=== PATIENT | female | born 1950 | race Hispanic/Latino ===

== ENCOUNTER 2018-02-13 01:30 | Inpatient (IN) | payer MEDICARE, OTHER ==
[~2018-02-13] VITALS: Ht 162.6 cm; Wt 72.6 kg
[~2018-02-13 01:30] MED LIST: AEC81 PO; HYDR1POW19 MC; INSLAN SQ; LEVO25TA9 PO; METF-446 PO
[2018-02-13] MEDS ORDERED: ONDANSETRON HCL 4 MG/2 ML VIAL ONE (02:04)
[2018-02-13] MEDS ORDERED: SODIUM CHLORIDE 0.9% 1000ML 1,000 ML IV ONE (02:04)
[2018-02-13 02:14] LABS: APPEARANCE,URINE Clear (CLEAR); BASOPHILS % (AUTO) 2.7 % (0.0-5.0); BILIRUBIN,URINE Negative (NEGATIVE); COLOR,URINE Yellow (YELLOW); EOSINOPHILS % (AUTO) 1.8 % (0.0-8.0); GLUCOSE, URINE (UA) 250 mg/dL (NEGATIVE); HEMATOCRIT 35.8 % (36-48); KETONES,URINE Negative (NEGATIVE); LEUKOCYTE ESTERASE ,URINE Trace (NEGATIVE); LYMPHOCYTES % (AUTO) 21.3 % (21.0-51.0); MEAN CORPUSCULAR HEMOGLOBIN 28.6 pg (27.0-33.0); MEAN CORPUSCULAR HGB CONC 34.6 g/dL (32.0-36.0); MEAN CORPUSCULAR VOLUME 82.6 fL (79-99); MONOCYTES % (AUTO) 3.9 % (3.0-13.0); NEUTROPHILS % (AUTO) 70.3 % (40.0-77.0); NITRATE,URINE Negative (NEGATIVE); OCCULT BLOOD,URINE Negative (NEGATIVE); PLATELET COUNT (AUTO) 371 K/uL (130-400); PROTEIN,URINE Negative (NEGATIVE); RED BLOOD CELL COUNT(AUTO) 4.33 MIL/uL (4.00-5.50); RED CELL DISTRIBUTION WIDTH 13.3 % (11.0-15.5); UROBILINOGEN,URINE 0.2 mg/dL (0.2-1.0); WHITE BLOOD COUNT (AUTO) 9.1 K/uL (4.8-10.8)
[2018-02-13 02:20] LABS: BACTERIA,URINE None Seen /HPF (None Seen); RBC,URINE None Seen /HPF (0-1); WBC,URINE None Seen /HPF (0-1)
[2018-02-13 02:22] LABS: ALBUMIN 3.8 g/dL (3.5-5.0); BILIRUBIN,TOTAL 0.3 mg/dL (0.2-1.0); POTASSIUM 3.8 mmol/L (3.5-5.1); TOTAL PROTEIN, SERUM 7.9 g/dL (6.0-8.3)
[2018-02-13] MEDS ORDERED: MAG HYDROX/AL HYDROX/SIMETH ES 30 ML SUSP UDCUP ONE (03:52)
[2018-02-13] MEDS ORDERED: LIDOCAINE HCL 2% VISCOUS 15 ML UDCUP ONE (03:52)
[2018-02-13] MEDS ORDERED: SODIUM CHLORIDE 3% 500 ML IV ONE (05:45)
[2018-02-13 07:00] VITALS: BP 132/93
[2018-02-13 08:48] LABS: CREATINE KINASE, TOTAL 95 U/L (21-232); MYOGLOBIN 69 ng/mL (10-92); TROPONIN I < 0.04 ng/mL (0.00-0.06)
[2018-02-13] MEDS: FAMOTIDINE/PF 20 MG/2 ML VIAL IV SCH (10:29)
[2018-02-13 11:00] VITALS: BP 156/65
[2018-02-13 15:07] LABS: CREATINE KINASE, TOTAL 80 U/L (21-232); MYOGLOBIN 58 ng/mL (10-92); TROPONIN I < 0.04 ng/mL (0.00-0.06)
[2018-02-13 16:00] VITALS: BP 154/70
[2018-02-13 17:37] VITALS: BP 168/66
[2018-02-13 20:00] VITALS: BP 161/77
[2018-02-14] VITALS (7 sets, daily range): BP systolic 135–163; BP diastolic 55–75
[2018-02-14 05:03] LABS: MEAN CORPUSCULAR HEMOGLOBIN 29.2 pg (27.0-33.0); MEAN CORPUSCULAR HGB CONC 35.2 g/dL (32.0-36.0); MEAN CORPUSCULAR VOLUME 82.8 fL (79-99); PLATELET COUNT (AUTO) 376 K/uL (130-400); RED BLOOD CELL COUNT(AUTO) 3.86 MIL/uL (4.00-5.50); RED CELL DISTRIBUTION WIDTH 13.8 % (11.0-15.5); WHITE BLOOD COUNT (AUTO) 4.3 K/uL (4.8-10.8)
[2018-02-14 05:10] LABS: CREATININE 1.2 mg/dL (0.5-1.5); MAGNESIUM 1.6 mg/dL (1.80-2.40); POTASSIUM 3.9 mmol/L (3.5-5.1)
[2018-02-14] MEDS ORDERED: MAGNESIUM SULFATE 4 GM in SODIUM CHLORIDE 0.9% 50 ML IV ONE (06:45)
[2018-02-14] MEDS ORDERED: MAGNESIUM 4GM PREMIX 100ML 100 ML IV SCH (07:00)
[2018-02-14] MEDS: FAMOTIDINE/PF 20 MG/2 ML VIAL IV SCH (11:03)
[2018-02-14] MEDS ORDERED: REGADENOSON 0.4 MG/5 ML PF SYG IVP SCH (12:00)
[2018-02-15] MEDS ORDERED: GUAIFENESIN-CODEINE 5 ML SYRUP ONE (01:15)
[2018-02-15] MEDS ORDERED: HYDROCODONE/CHLORPHEN 5 ML BOTTLE PO PRN (01:15)
[2018-02-15 03:00] VITALS: BP 159/62
[2018-02-15 04:41] LABS: BASOPHILS % (AUTO) 1.4 % (0.0-5.0); EOSINOPHILS % (AUTO) 2.5 % (0.0-8.0); HEMATOCRIT 30.9 % (36-48); LYMPHOCYTES % (AUTO) 25.7 % (21.0-51.0); MEAN CORPUSCULAR HEMOGLOBIN 29.2 pg (27.0-33.0); MEAN CORPUSCULAR HGB CONC 35.1 g/dL (32.0-36.0); MEAN CORPUSCULAR VOLUME 83.2 fL (79-99); NEUTROPHILS % (AUTO) 64.4 % (40.0-77.0); NUCLEATED RED BLOOD CELLS 0.2 % (0.0-0.19); PLATELET COUNT (AUTO) 305 K/uL (130-400); RED BLOOD CELL COUNT(AUTO) 3.71 MIL/uL (4.00-5.50); WHITE BLOOD COUNT (AUTO) 6.3 K/uL (4.8-10.8)
[2018-02-15 04:51] LABS: ALBUMIN 3.1 g/dL (3.5-5.0); BILIRUBIN,TOTAL 0.4 mg/dL (0.2-1.0); MAGNESIUM 2.5 mg/dL (1.80-2.40); TOTAL PROTEIN, SERUM 6.6 g/dL (6.0-8.3)
[2018-02-15 08:00] VITALS: BP 147/66
[2018-02-15] MEDS: FAMOTIDINE/PF 20 MG/2 ML VIAL IV SCH (08:24)
[2018-02-15] MEDS ORDERED: PANTOPRAZOLE SODIUM 40 MG TABLET.DR PO SCH (09:00)
[2018-02-15 11:51] VITALS: BP 154/68
== END 2018-02-15 13:45 | disposition home or self-care (01) | DRG 641 ==
LOC: EDH 01:30 → EDHIP 04:15 → 2AH 05:25 → 3CH 16:26
PROVIDERS: ADMIT Family Medicine; ATTEND Family Medicine
DX: E87.1 Hypo-osmolality and hyponatremia (principal); E03.9 Hypothyroidism, unspecified; E11.9 Type 2 diabetes mellitus without complications; E83.42 Hypomagnesemia; I10 Essential (primary) hypertension; K29.70 Gastritis, unspecified, without bleeding; K80.20 Calculus of gallbladder without cholecystitis without obstruction; E86.0 Dehydration; R13.10 Dysphagia, unspecified; Z98.41 Cataract extraction status, right eye; Z88.8 Allergy status to other drugs, medicaments and biological substances; Z90.710 Acquired absence of both cervix and uterus; Z87.440 Personal history of urinary (tract) infections; Z82.49 Family history of ischemic heart disease and other diseases of the circulatory system; Z82.3 Family history of stroke
CPT/HCPCS: 36415; 71045; 74176; 78452; 80048; 80053; 81001; 82150; 82550; 82948; 83690; 83735; 83874; 83880; 84484; 85025; 85027; 87040; 87088; 93005; 93017; 93306; 96374; A9500; J2405; J2785; J3475; J3490; J7030

== ENCOUNTER → 2018-03-06 | Outpatient (CLI) | payer OTHER ==
[~2018-03-06] MED LIST changes: -HYDR1POW19 MC
== END | disposition home or self-care (01) ==
LOC: RAH 13:45
PROVIDERS: ATTEND Internal Medicine Cardiovascular Disease
DX: Z13.6 Encounter for screening for cardiovascular disorders (principal)
CPT/HCPCS: 75571

== ENCOUNTER 2018-03-07 21:06 | Emergency (ER) | payer OTHER ==
[2018-03-07 21:50] LABS: BASOPHILS % (AUTO) 0.8 % (0.0-5.0); EOSINOPHILS % (AUTO) 3.8 % (0.0-8.0); HEMATOCRIT 32.9 % (36-48); LYMPHOCYTES % (AUTO) 25.5 % (21.0-51.0); MEAN CORPUSCULAR HEMOGLOBIN 28.9 pg (27.0-33.0); MONOCYTES % (AUTO) 6.3 % (3.0-13.0); NEUTROPHILS % (AUTO) 63.6 % (40.0-77.0); PLATELET COUNT (AUTO) 381 K/uL (130-400); RED BLOOD CELL COUNT(AUTO) 3.87 MIL/uL (4.00-5.50); RED CELL DISTRIBUTION WIDTH 13.7 % (11.0-15.5); WHITE BLOOD COUNT (AUTO) 6.4 K/uL (4.8-10.8)
[2018-03-07 22:03] LABS: POTASSIUM 3.9 mmol/L (3.5-5.1)
[2018-03-07 22:07] LABS: ALBUMIN 3.4 g/dL (3.5-5.0); BILIRUBIN,TOTAL 0.5 mg/dL (0.2-1.0)
[2018-03-07] MEDS ORDERED: AMLODIPINE BESYLATE 5 MG TAB PO ONE (22:43)
== END 2018-03-07 23:22 | disposition home or self-care (01) ==
LOC: EDH 21:06
DX: I10 Essential (primary) hypertension (principal); E11.9 Type 2 diabetes mellitus without complications; E07.9 Disorder of thyroid, unspecified; Z79.4 Long term (current) use of insulin; Z88.8 Allergy status to other drugs, medicaments and biological substances; Z87.891 Personal history of nicotine dependence
CPT/HCPCS: 36415; 80053; 85025; 93005

== ENCOUNTER → 2018-03-14 | Outpatient (CLI) | payer OTHER | END | disposition home or self-care (01) | LOC: RAH 10:09 | PROVIDERS: ATTEND Family Medicine | DX: R60.0 Localized edema (principal); M79.89 Other specified soft tissue disorders; E11.9 Type 2 diabetes mellitus without complications | CPT/HCPCS: 93970 ==

== ENCOUNTER 2021-03-31 22:19 | Inpatient (IN) | payer MEDICARE, OTHER ==
[~2021-03-31] VITALS: Ht 162.6 cm; Wt 77.9 kg
[2021-03-31] MEDS ORDERED: ONDANSETRON 4MG INJ IVP ONE (23:00)
[2021-03-31 23:07] LABS: BASOPHILS % (AUTO) 0.2 % (0.0-5.0); EOSINOPHILS % (AUTO) 0.1 % (0.0-8.0); HEMATOCRIT 29.5 % (36-48); LYMPHOCYTES % (AUTO) 3.3 % (21.0-51.0); MEAN CORPUSCULAR HEMOGLOBIN 28.6 pg (27.0-33.0); MEAN CORPUSCULAR HGB CONC 35.3 g/dL (32.0-36.0); NEUTROPHILS % (AUTO) 90.6 % (40.0-77.0); PLATELET COUNT (AUTO) 266 K/uL (130-400); RED BLOOD CELL COUNT(AUTO) 3.64 MIL/uL (4.00-5.50); RED CELL DISTRIBUTION WIDTH 13.4 % (11.0-15.5); WHITE BLOOD COUNT (AUTO) 14.1 K/uL (4.8-10.8)
[2021-03-31 23:16] LABS: ALANINE AMINOTRANSFERASE 15 U/L (12-78); ALBUMIN 2.8 g/dL (3.5-5.0); ASPARTATE AMINOTRANSFERASE 15 U/L (10-37); BILIRUBIN,TOTAL 0.7 mg/dL (0.2-1.0); CARBON DIOXIDE 22 mmol/L (21-32); GLOMERULAR FILTR. RATE CALC 16 mL/min (>60); GLUCOSE,RANDOM 207 mg/dL (70-105); POTASSIUM 4.4 mmol/L (3.5-5.1); SODIUM SERUM 120 mmol/L (136-145); TOTAL PROTEIN, SERUM 6.8 g/dL (6.0-8.3); UREA NITROGEN, BLOOD 36 mg/dL (7-18)
[2021-03-31 23:21] LABS: LIPASE < 50 U/L (114-286)
[2021-03-31 23:22] LABS: CHLORIDE 87 mmol/L (101-111)
[2021-03-31 23:33] LABS: APPEARANCE,URINE Turbid (CLEAR); BILIRUBIN,URINE Negative (NEGATIVE); COLOR,URINE Dark Yellow (YELLOW); GLUCOSE, URINE (UA) Negative (NEGATIVE); KETONES,URINE Trace mg/dL (NEGATIVE); LEUKOCYTE ESTERASE ,URINE Large (NEGATIVE); NITRATE,URINE Negative (NEGATIVE); OCCULT BLOOD,URINE Large (NEGATIVE); PROTEIN,URINE POS 2+ mg/dL (NEGATIVE)
[2021-03-31 23:43] LABS: BACTERIA,URINE Many /HPF (None Seen); SQUAMOUS EPITHELIAL CELL,UR Rare /HPF (0-2)
[2021-04-01] MEDS ORDERED: ZOSYN 3.375GM +NS 50ML IV ONE (00:30)
[2021-04-01] MEDS ORDERED: 0.9%NACL 1000ML 1,000 ML IV ONE ×3 (00:30→04:30)
[2021-04-01] MEDS ORDERED: VANCOMYCIN PROTOCOL PER PHARMACY IV SCH (04:30)
[2021-04-01] MEDS ORDERED: VANCOMYCIN 1G/250ML KIT 250 ML IV ONE (04:30)
[2021-04-01] MEDS: ZOSYN 3.375GM+NS 50ML 50 ML IV SCH ×2 (04:30→16:02)
[2021-04-01] MEDS: 0.9%NACL 1000ML 1,000 ML IV SCH ×3 (05:04→20:24)
[2021-04-01 07:20] LABS: HEMATOCRIT 28.4 % (36-48); MEAN CORPUSCULAR HEMOGLOBIN 27.8 pg (27.0-33.0); MEAN CORPUSCULAR HGB CONC 34.2 g/dL (32.0-36.0); MEAN CORPUSCULAR VOLUME 81.4 fL (79-99); PLATELET COUNT (AUTO) 246 K/uL (130-400); RED BLOOD CELL COUNT(AUTO) 3.49 MIL/uL (4.00-5.50); RED CELL DISTRIBUTION WIDTH 13.5 % (11.0-15.5); WHITE BLOOD COUNT (AUTO) 11.9 K/uL (4.8-10.8)
[2021-04-01 07:27] LABS: CREATININE 2.6 mg/dL (0.5-1.5); POTASSIUM 3.9 mmol/L (3.5-5.1)
[2021-04-01] MEDS ORDERED: CHOL2400 MC (07:29)
[2021-04-01] MEDS ORDERED: HYDR12.54 PO (07:29)
[2021-04-01] MEDS ORDERED: LOSA100T58 PO (07:29)
[2021-04-01] MEDS ORDERED: METO-408 PO (07:29)
[2021-04-01] MEDS ORDERED: LATA7.5D OP (07:29)
[2021-04-01] MEDS ORDERED: ACETAMINOPHEN 500 MG TABLET ONE (07:44)
[2021-04-01] MEDS: LEVOTHYROXINE 25 MCG TABLET PO SCH (07:55)
[2021-04-01] MEDS ORDERED: METFORMIN HCL 500 MG TABLET PO SCH (08:00)
[2021-04-01 08:59] LABS: BAND NEUTROPHILS % (MANUAL) 10 % (0-2); LYMPHOCYTES % (MANUAL) 2 % (22-44); MAN.DIFF COMMENT-IMPRESSION MANUAL DIFFERENTIAL; MONOCYTES % (MANUAL) 4 % (2-9); PLATELET MORPHOLOGY COMMENT ADEQUATE; SEGMENTED NEUTROPHILS % 84 % (40-70)
[2021-04-01] MEDS ORDERED: HYDROCHLOROTHIAZIDE 25 MG TABLET PO SCH (09:00)
[2021-04-01] MEDS ORDERED: LOSARTAN 100 MG TABLET PO SCH (09:00)
[2021-04-01] MEDS: METOPROLOL SUCCINATE 50 MG TAB.SR.24H PO SCH (09:00)
[2021-04-01] MEDS: ***HM***(Cholecalciferol (Vitamin D3) (Vitamin D3) 2,000 UNIT) PO SCH (09:00)
[2021-04-01] MEDS: ASPIRIN 81 MG EC TAB PO SCH (09:07)
[2021-04-01] MEDS: ACETAMINOPHEN 500 MG TABLET PO SCH ×2 (10:30→17:30)
[2021-04-01] MEDS: INSULIN GLARGINE 100 UNITS/ML 10 ML VIAL SQ SCH (17:30)
[2021-04-01] MEDS: LATANOPROST 2.5 ML DROPS OP SCH (20:17)
[2021-04-02 00:20] VITALS: BP 128/43
[2021-04-02] MEDS ORDERED: MAGNESIUM 4GM PREMIX 100ML 100 ML IV ONE (02:50)
[2021-04-02] MEDS ORDERED: MAGNESIUM 4GM PREMIX 100ML 100 ML IV PRN (03:00)
[2021-04-02] MEDS: ACETAMINOPHEN 500 MG TABLET PO SCH ×4 (03:02→20:33)
[2021-04-02 04:00] VITALS: BP 126/48
[2021-04-02] MEDS: LEVOTHYROXINE 25 MCG TABLET PO SCH (04:43)
[2021-04-02 05:31] LABS: BASOPHILS % (AUTO) 0.5 % (0.0-5.0); EOSINOPHILS % (AUTO) 0.4 % (0.0-8.0); HEMATOCRIT 27.3 % (36-48); LYMPHOCYTES % (AUTO) 5.2 % (21.0-51.0); MEAN CORPUSCULAR HEMOGLOBIN 27.8 pg (27.0-33.0); MEAN CORPUSCULAR HGB CONC 33.7 g/dL (32.0-36.0); MEAN CORPUSCULAR VOLUME 82.5 fL (79-99); MONOCYTES % (AUTO) 6.1 % (3.0-13.0); NEUTROPHILS % (AUTO) 86.9 % (40.0-77.0); PLATELET COUNT (AUTO) 180 K/uL (130-400); RED BLOOD CELL COUNT(AUTO) 3.31 MIL/uL (4.00-5.50); RED CELL DISTRIBUTION WIDTH 13.8 % (11.0-15.5); WHITE BLOOD COUNT (AUTO) 10.6 K/uL (4.8-10.8)
[2021-04-02 05:41] LABS: CREATININE 2.5 mg/dL (0.5-1.5); POTASSIUM 3.8 mmol/L (3.5-5.1)
[2021-04-02 06:01] LABS: MAGNESIUM 22.2 mg/dL (1.80-2.40)
[2021-04-02 08:00] VITALS: BP 121/56
[2021-04-02] MEDS: ***HM***(Cholecalciferol (Vitamin D3) (Vitamin D3) 2,000 UNIT) PO SCH (09:00)
[2021-04-02] MEDS: ASPIRIN 81 MG EC TAB PO SCH (10:37)
[2021-04-02] MEDS: PANTOPRAZOLE 40 MG TAB DR PO SCH (10:37)
[2021-04-02] MEDS: METOPROLOL SUCCINATE 50 MG TAB.SR.24H PO SCH (10:38)
[2021-04-02 11:45] VITALS: BP 137/53
[2021-04-02] MEDS: 0.9%NACL 1000ML 1,000 ML IV SCH ×2 (13:58→20:30)
[2021-04-02 16:00] VITALS: BP 118/61
[2021-04-02] MEDS: ZOSYN 3.375GM+NS 50ML 50 ML IV SCH (16:43)
[2021-04-02 20:00] VITALS: BP 127/41
[2021-04-02] MEDS: INSULIN GLARGINE 100 UNITS/ML 10 ML VIAL SQ SCH (20:20)
[2021-04-02] MEDS: LATANOPROST 2.5 ML DROPS OP SCH (21:17)
[2021-04-03] VITALS: BP 127/43
[2021-04-03] MEDS: ACETAMINOPHEN 500 MG TABLET PO SCH (02:18)
[2021-04-03] MEDS: LOPERAMIDE HCL 2 MG CAP PO PRN ×2 (03:32→03:38)
[2021-04-03] MEDS: ZOSYN 3.375GM+NS 50ML 50 ML IV SCH (03:38)
[2021-04-03 04:00] VITALS: BP 123/42
[2021-04-03] MEDS: LEVOTHYROXINE 25 MCG TABLET PO SCH (05:09)
[2021-04-03] MEDS: 0.9%NACL 1000ML 1,000 ML IV SCH (05:10)
[2021-04-03 06:09] LABS: BASOPHILS % (AUTO) 0.4 % (0.0-5.0); EOSINOPHILS % (AUTO) 2.5 % (0.0-8.0); HEMATOCRIT 27.1 % (36-48); LYMPHOCYTES % (AUTO) 6.8 % (21.0-51.0); MEAN CORPUSCULAR HEMOGLOBIN 27.8 pg (27.0-33.0); MEAN CORPUSCULAR HGB CONC 34.3 g/dL (32.0-36.0); MEAN CORPUSCULAR VOLUME 81.1 fL (79-99); MONOCYTES % (AUTO) 6.2 % (3.0-13.0); NEUTROPHILS % (AUTO) 83.1 % (40.0-77.0); PLATELET COUNT (AUTO) 267 K/uL (130-400); RED BLOOD CELL COUNT(AUTO) 3.34 MIL/uL (4.00-5.50); RED CELL DISTRIBUTION WIDTH 14.3 % (11.0-15.5); WHITE BLOOD COUNT (AUTO) 10.3 K/uL (4.8-10.8)
[2021-04-03] MEDS: PANTOPRAZOLE 40 MG TAB DR PO SCH (06:15)
[2021-04-03] MEDS ORDERED: PANT40TA54 PO (06:32)
[2021-04-03 06:37] LABS: CREATININE 2.5 mg/dL (0.5-1.5); MAGNESIUM 2.4 mg/dL (1.80-2.40); POTASSIUM 4.1 mmol/L (3.5-5.1); VANCOMYCIN LEVEL 6.5 mcg/mL (18.0-26.0)
[2021-04-03] MEDS ORDERED: NITR100C4 PO (06:38)
[2021-04-03] MEDS ORDERED: VANCOMYCIN KIT 1 GM/250 ML IV.KIT IV SCH (08:00)
[2021-04-07] MEDS ORDERED: 0.9% NACL 250ML 250 ML IV SCH (07:30)
== END 2021-04-03 09:53 | disposition home or self-care (01) | DRG 683 ==
LOC: EDH 22:19 → EDHIP 04-01 03:32 → 3AH 04-01 22:52
PROVIDERS: ADMIT Family Medicine; ATTEND Family Medicine
DX: N17.9 Acute kidney failure, unspecified (principal); E87.1 Hypo-osmolality and hyponatremia; N39.0 Urinary tract infection, site not specified; R78.81 Bacteremia; I10 Essential (primary) hypertension; E03.9 Hypothyroidism, unspecified; E11.9 Type 2 diabetes mellitus without complications; E86.0 Dehydration; D72.829 Elevated white blood cell count, unspecified; B96.89 Other specified bacterial agents as the cause of diseases classified elsewhere; E87.5 Hyperkalemia; E78.00 Pure hypercholesterolemia, unspecified; Z79.4 Long term (current) use of insulin; Z90.710 Acquired absence of both cervix and uterus; Z88.8 Allergy status to other drugs, medicaments and biological substances
CPT/HCPCS: 36415; 71250; 74176; 80048; 80053; 80202; 81001; 82010; 82948; 83605; 83690; 83735; 85025; 87040; 87046; 87077; 87088; 87186; 87324; G0378; J2405; J2543; J3370; J3475; J7030

== ENCOUNTER 2021-04-07 22:49 | Inpatient (IN) | payer MEDICARE ==
[~2021-04-07] VITALS: Ht 162.6 cm; Wt 73.6 kg
[~2021-04-07 22:49] MED LIST changes: +CHOL2400 MC; +LATA7.5D OP; -METF-446 PO; +METO-408 PO; +PANT40TA54 PO
[2021-04-07] MEDS ORDERED: 0.9%NACL 1000ML 1,000 ML IV ONE (23:30)
[2021-04-07] MEDS ORDERED: ONDANSETRON 4MG INJ IVP ONE (23:30)
[2021-04-07] MEDS ORDERED: ACETAMINOPHEN 325 MG TAB PO ONE (23:30)
[2021-04-07 23:47] LABS: BASOPHILS % (AUTO) 0.3 % (0.0-5.0); EOSINOPHILS % (AUTO) 0.3 % (0.0-8.0); HEMATOCRIT 29.2 % (36-48); LYMPHOCYTES % (AUTO) 4.9 % (21.0-51.0); MEAN CORPUSCULAR HGB CONC 33.6 g/dL (32.0-36.0); MEAN CORPUSCULAR VOLUME 83.4 fL (79-99); MONOCYTES % (AUTO) 4.1 % (3.0-13.0); NEUTROPHILS % (AUTO) 86.4 % (40.0-77.0); PLATELET COUNT (AUTO) 402 K/uL (130-400); RED CELL DISTRIBUTION WIDTH 14.2 % (11.0-15.5); WHITE BLOOD COUNT (AUTO) 18.6 K/uL (4.8-10.8)
[2021-04-07 23:47] LABS: BILIRUBIN,URINE Negative (NEGATIVE); COLOR,URINE Yellow (YELLOW); GLUCOSE, URINE (UA) 500 mg/dL (NEGATIVE); KETONES,URINE Trace mg/dL (NEGATIVE); LEUKOCYTE ESTERASE ,URINE Moderate (NEGATIVE); NITRATE,URINE Negative (NEGATIVE); OCCULT BLOOD,URINE Moderate (NEGATIVE); PH,URINE 5.5 (5.0-8.0); PROTEIN,URINE POS 2+ mg/dL (NEGATIVE)
[2021-04-07 23:53] LABS: APPEARANCE,URINE CLOUDY (CLEAR)
[2021-04-07 23:55] LABS: BACTERIA,URINE Rare /HPF (None Seen); SQUAMOUS EPITHELIAL CELL,UR Rare /HPF (0-2)
[2021-04-07 23:59] LABS: CREATININE 1.8 mg/dL (0.5-1.5); POTASSIUM 4.8 mmol/L (3.5-5.1)
[2021-04-08 00:04] LABS: ALBUMIN 2.3 g/dL (3.5-5.0); BILIRUBIN,TOTAL 0.7 mg/dL (0.2-1.0); CRP QUANTITATIVE 158.1 mg/L (0.00-9.0); TOTAL PROTEIN, SERUM 6.7 g/dL (6.0-8.3)
[2021-04-08] MEDS ORDERED: ZOSYN 3.375GM +NS 50ML IV ONE (03:00)
[2021-04-08] MEDS ORDERED: 0.9%NACL 1000ML 1,000 ML IV ONE (03:00)
[2021-04-08] MEDS ORDERED: MORPHINE 2 MG SYG IVP ONE (03:00)
[2021-04-08 05:00] VITALS: BP 129/72
[2021-04-08] MEDS ORDERED: NITR100C PO (06:05)
[2021-04-08] MEDS ORDERED: DULA1.5P SQ (06:05)
[2021-04-08] MEDS ORDERED: [UNRECOGNIZED DRUG - CODE] PO (06:05)
[2021-04-08] MEDS ORDERED: HYDR12.54 PO (06:05)
[2021-04-08] MEDS ORDERED: AMOX1TAB16 PO (06:05)
[2021-04-08] MEDS ORDERED: ONDA4TAB10 PO (06:05)
[2021-04-08] MEDS ORDERED: ATOR10 PO (06:05)
[2021-04-08] MEDS ORDERED: LOSA100T58 PO (06:05)
[2021-04-08] MEDS ORDERED: CHOL200074 PO (06:05)
[2021-04-08] MEDS ORDERED: METF-446 PO (06:05)
[2021-04-08 08:05] VITALS: BP 170/56
[2021-04-08] MEDS ORDERED: VANCOMYCIN PROTOCOL PER PHARMACY IV SCH (11:30)
[2021-04-08] MEDS ORDERED: MORPHINE 2 MG SYG IVP PRN (11:30)
[2021-04-08] MEDS ORDERED: COMPOUND IV REFRIGERATED 1 EACH IVSOLN MISC PRN (11:30)
[2021-04-08] MEDS ORDERED: ONDANSETRON 4MG INJ IVP PRN (11:30)
[2021-04-08] MEDS: ZOSYN 3.375GM +NS 50ML IV SCH ×2 (11:38→19:55)
[2021-04-08] MEDS: 0.9%NACL 1000ML 1,000 ML IV SCH ×2 (11:39→18:10)
[2021-04-08 12:06] VITALS: BP 153/63
[2021-04-08] MEDS: VANCOMYCIN 1.25GM/NS 250ML IVPB SCH ×2 (14:00)
[2021-04-08 16:00] VITALS: BP 168/55
[2021-04-08] MEDS: ATORVASTATIN 20 MG TABLET PO SCH (19:55)
[2021-04-08 20:00] VITALS: BP 123/51
[2021-04-08] MEDS ORDERED: GLUCAGON 1MG KIT 1 MG ML IM PRN (21:30)
[2021-04-08] MEDS ORDERED: DEXTROSE 50%-WATER 50 ML DISP.SYRIN IV PRN (21:30)
[2021-04-08] MEDS: INSULIN HUMULIN R 100 UNIT/ML 3ML SQ SCH (21:44)
[2021-04-09] VITALS (7 sets, daily range): BP systolic 134–178; BP diastolic 52–98
[2021-04-09] MEDS: 0.9%NACL 1000ML 1,000 ML IV SCH ×4 (00:50→17:15)
[2021-04-09] MEDS: ZOSYN 3.375GM +NS 50ML IV SCH ×3 (03:13→17:15)
[2021-04-09 04:24] LABS: HEMATOCRIT 25.9 % (36-48); MEAN CORPUSCULAR HEMOGLOBIN 27.6 pg (27.0-33.0); MEAN CORPUSCULAR HGB CONC 32.8 g/dL (32.0-36.0); MEAN CORPUSCULAR VOLUME 84.1 fL (79-99); RED BLOOD CELL COUNT(AUTO) 3.08 MIL/uL (4.00-5.50); RED CELL DISTRIBUTION WIDTH 14.4 % (11.0-15.5); WHITE BLOOD COUNT (AUTO) 15.9 K/uL (4.8-10.8)
[2021-04-09 04:37] LABS: CREATININE 1.9 mg/dL (0.5-1.5); MAGNESIUM 1.3 mg/dL (1.80-2.40); POTASSIUM 3.9 mmol/L (3.5-5.1)
[2021-04-09] MEDS: LEVOTHYROXINE 75 MCG TABLET PO SCH (06:05)
[2021-04-09] MEDS: INSULIN HUMULIN R 100 UNIT/ML 3ML SQ SCH ×4 (06:10→19:48)
[2021-04-09] MEDS ORDERED: MAGNESIUM 4GM PREMIX 100ML 100 ML IV SCH (06:30)
[2021-04-09] MEDS ORDERED: PHARMACY COMMUNICATION MISC SCH (07:30)
[2021-04-09] MEDS: **HM** VIT D3 50MCG PO SCH (09:00)
[2021-04-09] MEDS: METOPROLOL SUCCINATE 50 MG TAB.SR.24H PO SCH (09:09)
[2021-04-09] MEDS: NITROFURANTOIN MONOHYD/M-CRYST 100 MG CAPSULE PO SCH ×2 (09:09→20:18)
[2021-04-09] MEDS: HYDROCHLOROTHIAZIDE 25 MG TABLET PO SCH ×3 (09:09→20:22)
[2021-04-09] MEDS: PANTOPRAZOLE 40 MG TAB DR PO SCH (09:09)
[2021-04-09] MEDS: METFORMIN HCL 500 MG TABLET PO SCH ×2 (09:10→17:15)
[2021-04-09] MEDS: LOSARTAN 100 MG TABLET PO SCH (09:10)
[2021-04-09] MEDS: VANCOMYCIN 1.25GM/NS 250ML IVPB SCH ×2 (13:01)
[2021-04-09] MEDS ORDERED: SIMETHICONE 80 MG TAB.CHEW PO PRN (17:30)
[2021-04-09] MEDS ORDERED: SIMETHICONE 80 MG TAB.CHEW ONE (17:31)
[2021-04-09] MEDS: ATORVASTATIN 20 MG TABLET PO SCH (20:18)
[2021-04-10] VITALS: BP 171/68
[2021-04-10] MEDS: 0.9%NACL 1000ML 1,000 ML IV SCH ×2 (02:45→23:24)
[2021-04-10 04:00] VITALS: BP 159/62
[2021-04-10] MEDS: LEVOTHYROXINE 75 MCG TABLET PO SCH (05:34)
[2021-04-10] MEDS: INSULIN HUMULIN R 100 UNIT/ML 3ML SQ SCH ×4 (06:30→20:22)
[2021-04-10] MEDS: ZOSYN 3.375GM +NS 50ML IV SCH ×2 (06:39→20:20)
[2021-04-10 06:55] LABS: HEMATOCRIT 26.8 % (36-48); MEAN CORPUSCULAR HEMOGLOBIN 27.7 pg (27.0-33.0); MEAN CORPUSCULAR HGB CONC 33.2 g/dL (32.0-36.0); MEAN CORPUSCULAR VOLUME 83.5 fL (79-99); RED BLOOD CELL COUNT(AUTO) 3.21 MIL/uL (4.00-5.50); RED CELL DISTRIBUTION WIDTH 14.5 % (11.0-15.5); WHITE BLOOD COUNT (AUTO) 12.9 K/uL (4.8-10.8)
[2021-04-10 07:12] LABS: ALBUMIN 1.8 g/dL (3.5-5.0); BILIRUBIN,DIRECT 0.2 mg/dL (0.0-0.3); BILIRUBIN,TOTAL 0.5 mg/dL (0.2-1.0); CREATININE 1.8 mg/dL (0.5-1.5); POTASSIUM 4.3 mmol/L (3.5-5.1); TOTAL PROTEIN, SERUM 5.7 g/dL (6.0-8.3)
[2021-04-10 08:00] VITALS: BP 184/78
[2021-04-10 08:14] LABS: MAGNESIUM 2.1 mg/dL (1.80-2.40)
[2021-04-10] MEDS: **HM** VIT D3 50MCG PO SCH (09:00)
[2021-04-10] MEDS: METOPROLOL SUCCINATE 50 MG TAB.SR.24H PO SCH (09:54)
[2021-04-10] MEDS: PANTOPRAZOLE 40 MG TAB DR PO SCH (09:54)
[2021-04-10] MEDS: METFORMIN HCL 500 MG TABLET PO SCH ×2 (09:54→16:52)
[2021-04-10] MEDS: HYDROCHLOROTHIAZIDE 25 MG TABLET PO SCH ×2 (09:55→20:21)
[2021-04-10] MEDS: LOSARTAN 100 MG TABLET PO SCH (09:55)
[2021-04-10] MEDS: NITROFURANTOIN MONOHYD/M-CRYST 100 MG CAPSULE PO SCH ×2 (10:44→20:21)
[2021-04-10] MEDS: VANCOMYCIN 1.25GM/NS 250ML IVPB SCH ×2 (11:48)
[2021-04-10 12:00] VITALS: BP 181/74
[2021-04-10] MEDS ORDERED: CLONIDINE HCL 0.2 MG TABLET PO ONE (12:09)
[2021-04-10] MEDS: CLONIDINE HCL 0.2 MG TABLET PO SCH ×2 (13:21→20:21)
[2021-04-10 16:00] VITALS: BP 139/59
[2021-04-10] MEDS: ATORVASTATIN 20 MG TABLET PO SCH (20:21)
[2021-04-10 20:30] VITALS: BP 136/71
[2021-04-11 00:28] VITALS: BP 148/61
[2021-04-11 04:28] VITALS: BP 146/59
[2021-04-11 05:33] LABS: HEMATOCRIT 25.6 % (36-48); MEAN CORPUSCULAR HEMOGLOBIN 27.9 pg (27.0-33.0); MEAN CORPUSCULAR VOLUME 87.1 fL (79-99); RED BLOOD CELL COUNT(AUTO) 2.94 MIL/uL (4.00-5.50); RED CELL DISTRIBUTION WIDTH 14.3 % (11.0-15.5); WHITE BLOOD COUNT (AUTO) 13.2 K/uL (4.8-10.8)
[2021-04-11 05:50] LABS: CREATININE 1.9 mg/dL (0.5-1.5); MAGNESIUM 1.8 mg/dL (1.80-2.40); POTASSIUM 4.4 mmol/L (3.5-5.1)
[2021-04-11] MEDS: ZOSYN 3.375GM +NS 50ML IV SCH (06:21)
[2021-04-11] MEDS: LEVOTHYROXINE 75 MCG TABLET PO SCH (06:21)
[2021-04-11] MEDS: INSULIN HUMULIN R 100 UNIT/ML 3ML SQ SCH (06:21)
[2021-04-11 08:00] VITALS: BP 149/64
[2021-04-11] MEDS: HYDROCHLOROTHIAZIDE 25 MG TABLET PO SCH (09:00)
[2021-04-11] MEDS: PANTOPRAZOLE 40 MG TAB DR PO SCH (09:25)
[2021-04-11] MEDS: METFORMIN HCL 500 MG TABLET PO SCH (09:25)
[2021-04-11] MEDS: LOSARTAN 100 MG TABLET PO SCH (09:26)
[2021-04-11] MEDS: METOPROLOL SUCCINATE 50 MG TAB.SR.24H PO SCH (09:26)
[2021-04-11] MEDS: NITROFURANTOIN MONOHYD/M-CRYST 100 MG CAPSULE PO SCH (09:28)
[2021-04-11] MEDS: CLONIDINE HCL 0.2 MG TABLET PO SCH (09:34)
[2021-04-11] MEDS: **HM** VIT D3 50MCG PO SCH (09:35)
[2021-04-11 11:56] VITALS: BP 138/66
[2021-04-15] MEDS ORDERED: **HM**TRULICITY 1.5MG SQ SCH (09:00)
== END 2021-04-11 11:30 | disposition home or self-care (01) | DRG 641 ==
LOC: EDH 22:49 → EDHIP 04-08 03:00 → 3DH 04-08 03:55
PROVIDERS: ADMIT Family Medicine; ATTEND Family Medicine
DX: E86.0 Dehydration (principal); N39.0 Urinary tract infection, site not specified; N17.9 Acute kidney failure, unspecified; R78.81 Bacteremia; E87.1 Hypo-osmolality and hyponatremia; E87.6 Hypokalemia; K80.20 Calculus of gallbladder without cholecystitis without obstruction; E78.00 Pure hypercholesterolemia, unspecified; E03.9 Hypothyroidism, unspecified; E83.42 Hypomagnesemia; E11.9 Type 2 diabetes mellitus without complications; I10 Essential (primary) hypertension; Z88.8 Allergy status to other drugs, medicaments and biological substances; Z90.710 Acquired absence of both cervix and uterus; Z87.440 Personal history of urinary (tract) infections; Z79.4 Long term (current) use of insulin
CPT/HCPCS: 36415; 71045; 76705; 78226; 80048; 80053; 80076; 81001; 82948; 83605; 83690; 83735; 84484; 85025; 85027; 86140; 87040; 87088; 93005; A9537; G0378; J1815; J2405; J2543; J3370; J3475; J7030; J7050